=== PATIENT | male | born 1985 | race Caucasian/White ===

== ENCOUNTER 2023-02-05 10:54 | Emergency (ER) | payer OTHER ==
[~2023-02-05] VITALS: Ht 182.9 cm; Wt 82.0 kg
[2023-02-05 10:58] VITALS: TEMP 98.4
[2023-02-05] MEDS ORDERED: OxyCODONE HCL/ACETAMINOPHEN 5-325 MG TABLET PO ONE (12:00)
[2023-02-05] MEDS ORDERED: IBUPROFEN 600 MG TABLET PO ONE (12:00)
[2023-02-05 12:51] VITALS: BP 153/86; PULSE 88; RESP 18
[2023-02-05] MEDS ORDERED: IBUP-1492 PO (13:58)
[2023-02-05] MEDS ORDERED: PERCT PO (14:00)
== END 2023-02-05 14:07 | disposition home or self-care (01) ==
LOC: EMS 11:00
DX: S67.21XA Crushing injury of right hand, initial encounter (principal); F17.210 Nicotine dependence, cigarettes, uncomplicated; Z90.49 Acquired absence of other specified parts of digestive tract; Z98.890 Other specified postprocedural states; W23.0XXA Caught, crushed, jammed, or pinched between moving objects, initial encounter; Y93.89 Activity, other specified; Y92.89 Other specified places as the place of occurrence of the external cause; Y99.8 Other external cause status
CPT/HCPCS: 99283